=== PATIENT | female | born 1985 | race Caucasian/White ===

== ENCOUNTER 2020-06-26 20:25 | Outpatient (CLI) | payer OTHER, SELFPAY ==
[2020-06-26 21:15] VITALS: BP 106/66; PULSE 75
[2020-06-26 21:30] VITALS: BP 110/69; PULSE 69
== END 2020-06-26 21:50 | disposition home or self-care (01) ==
LOC: ANHOBOP 21:12 → ANHLDR 21:13
PROVIDERS: Visit Provider Obstetrics & Gynecology
DX: O42.90 Premature rupture of membranes, unspecified as to length of time between rupture and onset of labor, unspecified weeks of gestation (principal); Z3A.00 Weeks of gestation of pregnancy not specified
CPT/HCPCS: 59025; 99199

== ENCOUNTER 2020-07-09 11:11 | Inpatient (IN) | payer OTHER, SELFPAY ==
[2020-07-09] VITALS (61 sets, daily range): BP systolic 82–139; BP diastolic 50–108; PULSE 37–138; RESP 18; TEMP 36.3–37.1; O2SAT 94–100; BMI 30.3
[2020-07-09 12:00] LABS: Basophils Percent Auto 0.3 % (0.2-1.2); Eosinophils Percent Auto 0.5 % (0-4.4); Hematocrit 39.3 % (37.0-47.0); Hemoglobin 13.7 g/dL (12.0-15.0); Immature Granulocyte Absolute 0.11 K/mm3 (0.00-0.031); Immature Granulocyte Percent A 1.2 % (0-0.5); Mean Corpuscular HGB Conc 34.9 g/dl (32-36); Mean Corpuscular Hemoglobin 30.3 pg (26-34); Mean Corpuscular Volume 86.9 fl (80-100); Mean Platelet Volume 10.3 fl (7.4-10.4); Monocytes Absolute Auto 0.8 K/mm3 (0.1-0.6); Neutrophils Absolute Auto 6.3 K/mm3 (1.3-6.7); Platelet Count Result 215 k/mm3 (150-375); Red Blood Count 4.52 M/mm3 (4.2-5.4); Red Cell Distribution Width 13.2 % (11.5-14.5); White Blood Count 8.8 K/mm3 (4.5-10.0)
[2020-07-09] MEDS: LACTATED RINGERS 1,000 ML 125 ML IV CONT ×2 (12:05→17:00)
[2020-07-09] MEDS: AMPICILLIN 2 GM/NS 100 ML 2 GM/100 ML BAG IVPB (12:06)
--- NOTE | 2020-07-09 12:10 | LDADM ---
This patient, Rochelle Cristina, was admitted to Labor/Delivery/Recovery 104 on 07/09/20 at 11:11. Plans for labor, pain management and were discussed with patient. Patient/family oriented to hospital policies and general routines including ID bracelet, bed and alarms, visiting hours, pain management, procedures, bathroom and other care routines, personal items, smoking policy, room service/diet and guest tray routines, infant security routines, and visiting hours. Patient/Family are encouraged to report perceived risks to care and to ask questions if they do not understand what they are told or what they should do. See OBIX for further documentation.
--- NOTE | 2020-07-09 12:12 | WPDANESEPP ---
Anes - Eval Pre Procedure Procedure: labor epidural Date/Time: 07/09/20 12:12 Preop Diagnosis: labor pain Pre Op Diagnosis: leaking Patient Data Age: 35 Gender: F Height: Weight: Allergies Allergy/AdvReac Type Severity Reaction Status Date / Time No Known Allergies Allergy Verified 06/07/20 15:04 Home Medications Medication Instructions Recorded Confirmed Type PNV cmb#95-ferrous fumarate-FA 1 tablet PO DAILY 06/07/20 06/07/20 History [] Laboratory Tests 07/09/20 07/09/20 11:53 11:53 WBC 8.8 K/mm3 K/mm3 (4.5-10.0) RBC 4.52 M/mm3 M/mm3 (4.2-5.4) Hgb 13.7 g/dL g/dL (12.0-15.0) Hct 39.3 % % (37.0-47.0) MCV 86.9 fl fl (80-100) MCH 30.3 pg pg (26-34) MCHC 34.9 g/dl g/dl (32-36) RDW 13.2 % % (11.5-14.5) Plt Count 215 k/mm3 k/mm3 (150-375) MPV 10.3 fl fl (7.4-10.4) Immature Gran % (Auto) 1.2 % H % (0-0.5) Neut % (Auto) 72.0 % % (45.5-73.1) Lymph % (Auto) 17.0 % L % (18.3-44.2) [place] % (Auto) 9.0 % H % (2.6-8.5) Eos % (Auto) 0.5 % % (0-4.4) Baso % (Auto) 0.3 % % (0.2-1.2) Lymph # (Auto) 1.50 K/mm3 K/mm3 (0.9-3.2) [place] # (Auto) 0.8 K/mm3 H K/mm3 (0.1-0.6) Eos # (Auto) 0.0 K/mm3 K/mm3 (0-0.3) Baso # (Auto) 0.0 K/mm3 K/mm3 (0.0-0.1) Abs Immat Gran (auto) 0.11 K/mm3 H K/mm3 (0.00-0.031) Absolute Neuts (auto) 6.3 K/mm3 K/mm3 (1.3-6.7) Absolute Nucleated RBC 0.0 K/mm3 K/mm3 (0.0-0.012) Nucleated RBC % 0.0 % % (0.0-0.2) RPR Pending Patient hx anesthesia problems: none Family hx anesthesia problems: none PMF Family History Family History (Updated 06/07/20 @ 15:06 by Olivia Andre RN) Mother Hypertension Diabetes mellitus Breast cancer Lung cancer Father Hepatitis C Social History Social History Smoking status: Never smoker Substance use: never Gender identity (if verbalized by the patient): Female Spiritual care concerns: No Exam Day of Procedure 07/09/20 12:12
--- NOTE | 2020-07-09 12:15 | WPDOBADMIT ---
Obstetrics - Admit Note Admission Note: record reviewed. Additions to the history and/or subsequent changes in the physical findings follow. 35 y/o G1 at 40 2/7 weeks here after a gush of fluid at 1030 today. RomPlus positive. GBS pos. Pregancy otherwise uncomplicated. AVSS NST reactive TOCO: contractions every 2-5 min ABD soft, nontender, gravid, vertex EXT nontender Cervix 4/50/-2. Vertex. A: IUP at term with SROM. P: Anticipate .
[2020-07-09] MEDS: AMPICILLIN 1 GM/NS 50 ML 1 GM/50 ML BAG IVPB (16:01)
--- NOTE | 2020-07-09 17:44 | PM.OBPNLAB ---
Pain Control Date/time seen: 07/09/20 17:44 Comments: Comfortable with epidural. Pelvic Exam Dilation (cm): 9 Effacement (%): 100 station: -1 Contractions Contraction frequency: 2 Contraction pattern: Regular Status status: Category l Assessment and Plan Plan: continuous present management
[2020-07-09] MEDS: OXYTOCIN 30 UNITS/NS 500 ML 30 UNITS/500 ML BAG 6 UNITS IV CONT (18:32)
--- NOTE | 2020-07-09 19:52 | PM.OBPRVD ---
OB - Delivery Note Procedure Delivery date: 07/09/20 Procedure: Induction method: none Delivery monitor: external FHT and external uterine Route of delivery: Laceration description: Perineal - 2nd Degree Delivery repair: vicryl (3-0 Vicryl) Specimen: Yes (cord blood) Estimated blood loss (mL): 120 Anesthesia type: Epidural Disposition: PACU Narrative: 35 y/o G1 at 40 2/7 weeks gestation who presented to the hospital after a gush of clear fluid at home. SROM was confirmed and she was admitted. She received ampicillin for GBS colonization. She received an epidural for pain control. Her labor progressed and her cervix dilated completely. The second stage was augmented with oxytocin intravenously. She pushed with good effort and delivered the infant's head to the perineum, followed by the body. A true knot in the umbilical cord was noted. The nose and mouth were bulb suctioned. After a delay, the cord was clamped and cut. The infant was handed off the field. Cord blood was collected. The placenta delivered spontaneously and was grossly normal in appearance. The usual 3 vessel cord was noted. A second degree midline perineal laceration was sustained. This was reapproximated using 3 0 Vicryl in the usual layered fashion. Excellent hemostasis resulted as did excellent reapproximation of the normal anatomy. Needle and instrument counts were correct. The patient was taken to recovery room in stable condition. The went to the nursery in stable condition. I was present and scrubbed for the entire delivery. [facility] Baby Date of : 07/09/20 Time of : 19:30 Weeks of gestation at delivery: 40 Infant gender: Male Weight (pounds): 7 Weight (ounces): 5 presentation: vertex position: Left Occiput Anterior Placenta delivery description: Spontaneous and Normal Configuration cord vessel description: 3 Vessels and True Knot score one minute: 9 score five minutes: 9
[2020-07-09] MEDS: OXYTOCIN 30 UNITS/NS 500 ML 30 UNITS/500 ML BAG 125 UNITS IV CONT (20:22)
[2020-07-09] MEDS: WITCH HAZEL 40 PADS 1 PAD TOPICAL (22:05)
[2020-07-09] MEDS: BENZOCAINE 20% AER SPR (*SP) 56 GM CAN 1 SPRAY TOPICAL (22:05)
[2020-07-09] MEDS: IBUPROFEN 600 MG TABLET PO (22:56)
--- NOTE | 2020-07-09 23:51 | OBPPTRN ---
Patient transferred to post room # 286 via wheelchair. Support person present. also arrived via crib. Oriented to unit, room, information board, rooming in, admission packet and security measures. Patient verbalizes understanding.
[2020-07-10] MEDS: ACETAMINOPHEN 325 MG TABLET 650 MG PO ×4 (00:50→21:44)
[2020-07-10 05:14] LABS: Hemoglobin 12.1 g/dL (12.0-15.0)
--- NOTE | 2020-07-10 09:00 | PC.NURSE ---
PT introductions made and plan of care discussed per post , pain management, breast feeding, daily care activities. PT verbalized understanding of such care.
[2020-07-10 09:30] VITALS: BP 110/61; PULSE 86; RESP 18; TEMP 36.4
[2020-07-10 09:30] LABS: Rapid Plasma Reagin Non-Reactive (NonReactive)
[2020-07-10] MEDS: IBUPROFEN 600 MG TABLET PO ×3 (09:52→21:44)
[2020-07-10 09:53] VITALS: PULSE 86; RESP 18; O2SAT 100
[2020-07-10] MEDS: DOCUSATE SODIUM 100 MG CAPSULE PO ×2 (09:53→15:17)
[2020-07-10] MEDS: LANOLIN (LANSINOH) 7.5 GM CREAM 1 APPLIC TOPICAL (09:54)
[2020-07-10] MEDS: TETANUS,DIPHTHERIA,AC PERTUSSIS ADULT (0.5 ML) BOOSTRIX IM (09:56)
--- NOTE | 2020-07-10 10:59 | WPDANLDPN2 ---
Anes-Prog Note L&D Date/Time: 07/10/20 10:59 Comfortable throughout: labor and delivery Neuraxial method: epidural Epidural/Spinal procedure site: clean & non-tender Neuro status: Neuro function grossly intact. Cardiovascular status: normal Respiratory status: normal Airway patency: baseline Mental status: baseline Post-Op hydration status: normal Vital Signs: Last Vital Signs Temp 36.4 C L 07/10/20 09:30 Pulse 86 07/10/20 09:53 Resp 18 07/10/20 09:53 BP 110/61 07/10/20 09:30 Pulse Ox 100 07/10/20 09:53 I/O: Intake & Output 07/09/20 07/10/20 07/10/20 23:59 07:59 15:59 Intake Total 2250 Output Total 40 Balance 2210 Post-procedural complaints: none Patient feedback: Patient satisfied with anesthetic care.
--- NOTE | 2020-07-10 12:45 | PC.NURSE ---
Consulted with patient, mother reports infant has had difficulties with latching, she is using the nipple shield each feeding. Mother has initiated pumping and has given a few drops of colostrum each feeding. has not had a successful latch since delivery as reported by mother. Parents are concerned with infant intake and feeding status. Discussed nipple shield precautions and possible complications. Instructions given on application and cleaning of shield. Patient able to return demonstration on proper application of shield. Discussed the need for regular pumping if infant continues to nurse with the shield. Patient verbalizes understanding. Reviewed weaning techniques from shield. Reviewed infant feeding cues, frequencies, duration of feedings, feeding elimination flow sheet, and signs of adequate intake. Demonstrated stimulation techniques to wake for feeding. Assisted with to breast with shield. Mother has flatter nipples. Reviewed positioning/alignment in cross cradle, holding breast in U hold and guided asymmetrical latch on. Discussed rational for each. was able to latch correctly. Infant nursed made little effort to suckle, short chewy bursts with long pausing noted. Discussed the difference of effective vs ineffective feeding. Reviewed signs of a correct latch, effective nursing and suck swallow ratio. was able to maintain latch without discomfort to mother, no suckling noted. Nipple care reviewed. Feeding options discussed. Suggested mother put infant to breast each feeding, then supplement by bottle 15mls EBM/formula, and pump. Reviewed pumping will assist with stimulation of supply and may give any expressed as part of supplement. Parents are very content with feeding plan.
--- NOTE | 2020-07-10 15:17 | PM.OBPNVD ---
OB - PN: Subj Subjective Date/time seen: 07/10/20 15:17 Narrative: Pain OK. Would like circumcision for son. OB - PN: Obj Data Labs CBC & Chem 7: 07/10/20 04:01 Labs: Laboratory Results - last 24 hr 07/09/20 07/10/20 11:53 04:01 Hgb 12.1 Hct 35.0 L RPR Non-reactive OB - PN A/P Plan Comments: A: PPD#1, doing well. P: Routine care. Reviewed circumcision. Exam Psych: Other: AVSS ABD soft, nontender, fundus firm EXT nontender
--- NOTE | 2020-07-10 15:18 | P.DS_ITS ---
DS: Admitting Diagnosis Admitting Diagnosis Admitting Diagnosis: SROM DS: Discharge Diagnosis Discharge Diagnosis (1) (normal spontaneous vaginal delivery): Code(s): O80 - Encounter for full-term uncomplicated delivery Status: Acute DS: Data Data Completed and Pending Labs on day of discharge: Labs from last 24 hours 07/10/20 07/09/20 04:01 11:53 Hgb 12.1 Hct 35.0 L RPR Non-reactive Discharge Plan Discharge Attending physician on discharge: Jhonny Mills Discharging Clinician: Jhonny Mills Patient Disposition: Home, Self-Care Activity: pelvic rest Diet: regular Discharge Instructions: Call or return if temperature above 100.4? F, increased abdominal pain, increased vaginal bleeding or any new problems. Stand Alone Forms: General Discharge Information Follow-up/Referrals: Jhonny Mills MD [Physician] - (6 weeks) Discharge Medications: New ibuprofen 600 mg tablet 600 mg PO Q6H PRN (Reason: cramps) Qty: 30 RF: 0 No Action PNV cmb#95-ferrous fumarate-FA [] 28 mg iron- 800 mcg Tablet 1 tablet PO DAILY RF: 0 Date of admission: 07/09/20 11:11 Primary Care Provider: PHYSICIAN,[employer] SPECIALIST Admitting Provider: Jhonny Mills Attending physician on admission: hJonny Mills
[2020-07-10 20:20] VITALS: BP 107/65; PULSE 89; RESP 18; TEMP 36.5; O2SAT 99
[2020-07-11] MEDS: IBUPROFEN 600 MG TABLET PO ×2 (03:45→10:54)
[2020-07-11] MEDS: ACETAMINOPHEN 325 MG TABLET 650 MG PO ×2 (03:45→10:54)
--- NOTE | 2020-07-11 07:49 | PM.OBPNVD ---
OB - PN: Subj Subjective Date/time seen: 07/11/20 07:49 Narrative: Pain OK. Would like to go home. OB - PN: Obj Data Labs CBC & Chem 7: 07/10/20 04:01 Labs: Laboratory Results - last 24 hr 07/09/20 11:53 RPR Non-reactive OB - PN A/P Plan Comments: A: PPD#2, doing well. P: Home to f/u 6 weeks. Exam Psych: Other: AVSS ABD soft, nontender, fundus firm EXT nontender
[2020-07-11 08:00] VITALS: BP 102/60; PULSE 74; RESP 18; TEMP 36.8; O2SAT 100
--- NOTE | 2020-07-11 10:00 | PC.NURSE ---
Mother verbalizes she is able to independently latch with appropriate positioning/alignment using the nipple shield. She denies any nipple discomfort, is feeding as required and waking infant to feed if needed. Infant continues with sporadic feedings, he has sleepy feeds and will wake and eagerly latch with short bursts of nursing. Infant is currently meeting outcomes for weight, output, jaundice and feeding frequencies. is supplemented after each and mother is pumping. Mother states she feels confident to continue current feeding plan at home. Reviewed transition to breast milk, signs of adequate intake, and engorgement/relief. Instructed to call ICP if intake/output less than required. Discussed signs when infant would require increase in supplementation and signs when infant maybe ready to decrease supplementation. Reviewed regular medications mother is taking. Information provided per Christa. Reviewed community resources on the [employer] website and in the Mom/Baby guide. Information on outpatient services provided. Mother has no further questions at this time.
[2020-07-11] MEDS: DOCUSATE SODIUM 100 MG CAPSULE PO (10:54)
[2020-07-11] MEDS: MULTIVIT/MIN/PREN/FOL AC/IRON TABLET 1 TAB PO (10:55)
--- NOTE | 2020-07-11 14:17 | PC.NURSE ---
0900 Mother states she viewed the discharge DVD.
[2020-07-12 10:56] VITALS: BP 112/73; PULSE 86; RESP 20; TEMP 36.6; O2SAT 100
== END 2020-07-11 12:41 | disposition home or self-care (01) | DRG 807 ==
LOC: ANHLDR 19:56 → ANHOB2 22:26
PROVIDERS: Admitting Provider Obstetrics & Gynecology; Visit Provider Obstetrics & Gynecology
DX: O99.824 Streptococcus B carrier state complicating childbirth (principal); Z37.0 Single live birth; Z3A.40 40 weeks gestation of pregnancy; O36.8330 Maternal care for abnormalities of the fetal heart rate or rhythm, third trimester, not applicable or unspecified; O70.1 Second degree perineal laceration during delivery; O69.2XX0 Labor and delivery complicated by other cord entanglement, with compression, not applicable or unspecified
CPT/HCPCS: 36415; 85014; 85018; 85025; 86592; 86850; 86900; 86901; 90715; A9270; J0290; J2590; J2795; J7120

== ENCOUNTER 2022-01-07 08:30 | Outpatient (CLI) | payer OTHER, SELFPAY ==
--- NOTE | ~2022-01-07 | MM_ITS ---
EXAMINATION: MM scrn calli implant BI w jayne HISTORY: Screening mammogram TECHNIQUE: Craniocaudal and mediolateral oblique 3-D tomosynthesis images with implant displacement a nd synthetic 2-D images were generated. Craniocaudal and mediolateral oblique views of the breasts wi thout implant displacement were obtained using full field digital mammography. CAD analysis was submi tted and interpreted. COMPARISON: No prior mammogram is available for comparison at this institution. BREAST PARENCHYMAL COMPOSITION: The breasts are extremely dense, which lowers the sensitivity of mamm ography. FINDINGS: Status post bilateral augmentation mammoplasty. There is no evidence of suspicious mass, ca lcification, or architectural distortion to suggest malignancy in either breast. There has been no marcus spicious interval change. IMPRESSION: 1. No mammographic evidence of malignancy. 2. Recommend routine screening mammography in one year. BI-RADS Category 1: Negative Reviewed, dictated and finalized at location A. [employer]
== END 2022-01-07 08:31 | disposition home or self-care (01) ==
LOC: ANHIMG 08:32
PROVIDERS: Visit Provider Obstetrics & Gynecology
DX: Z12.31 Encounter for screening mammogram for malignant neoplasm of breast (principal)
CPT/HCPCS: 77063; 77067

== ENCOUNTER 2023-10-05 11:40 | Outpatient (CLI) | payer OTHER, SELFPAY ==
--- NOTE | 2023-10-05 | ECG_ITS ---
Measurements Intervals [place] Rate: 84 P: 33 VA: 106 QRS: 62 QRSD: 82 T: 41 QT: 345 QTc: 409 Interpretive Statements SINUS RHYTHM WITH SHORT VA INTERVAL BASELINE WANDER- V2, V4-V5 BORDERLINE ECG NO PREVIOUS ECG AVAILABLE FOR COMPARISON Electronically Signed On 10-05-2023 13:49:55 VETERINARY MICROBIOLOGIST by Cristofer Zhu D.O.
== END 2023-10-05 11:41 | disposition home or self-care (01) ==
LOC: ANHCARD 11:42
PROVIDERS: Visit Provider Obstetrics & Gynecology
DX: R55 Syncope and collapse (principal); R94.31 Abnormal electrocardiogram [ECG] [EKG]
CPT/HCPCS: 93005

== ENCOUNTER 2023-10-18 15:22 | Observation (INO) | payer OTHER, SELFPAY ==
[2023-10-18] VITALS (13 sets, daily range): BP systolic 104–109; BP diastolic 61–72; PULSE 73–90; O2SAT 99–100; BMI 28.3
--- NOTE | 2023-10-18 16:13 | PC.NURSE ---
Dr Mills notified of adm c/o of dizziness and noted arrhythmia. Orders for labs obtained
[2023-10-18 16:45] LABS: Basophils Percent Auto 0.3 % (0.2-1.2); Eosinophils Absolute Auto 0.1 K/mm3 (0-0.3); Eosinophils Percent Auto 0.5 % (0-4.4); Hematocrit 35.9 % (37.0-47.0); Hemoglobin 12.4 g/dL (12.0-15.0); Immature Granulocyte Absolute 0.09 K/mm3 (0.00-0.031); Immature Granulocyte Percent A 0.9 % (0-0.5); Lymphocytes Percent Auto 17.9 % (18.3-44.2); Mean Corpuscular HGB Conc 34.5 g/dl (32-36); Mean Corpuscular Hemoglobin 29.9 pg (26-34); Mean Corpuscular Volume 86.5 fl (80-100); Mean Platelet Volume 9.5 fl (7.4-10.4); Monocytes Absolute Auto 0.9 K/mm3 (0.1-0.6); Monocytes Percent Auto 9.3 % (2.6-8.5); Neutrophils Absolute Auto 7.2 K/mm3 (1.3-6.7); Neutrophils Percent Auto 71.1 % (45.5-73.1); Platelet Count Result 229 k/mm3 (150-375); Red Blood Count 4.15 M/mm3 (4.2-5.4); Red Cell Distribution Width 12.4 % (11.5-14.5); White Blood Count 10.1 K/mm3 (4.5-10.0)
[2023-10-18 16:57] LABS: Alanine Aminotransferase 18 U/L (6-35); Albumin Level 3.9 g/dL (3.5-5.1); Alkaline Phosphatase 114 U/L (38-126); Anion Gap 8 mmol/L (8-16); Aspartate Amino Transferase 25 U/L (14-36); Bilirubin,Total 0.4 mg/dL (0.2-1.3); Blood Urea Nitrogen 12 mg/dL (7-17); Calcium 9.3 mg/dL (8.4-10.2); Carbon Dioxide 20 mmol/L (22-30); Chloride 106 mmol/L (98-107); Estimated Glomerular Filt Rate > 60; Glucose 69 mg/dL (65-110); Potassium 4.2 mmol/L (3.4-5.0); Sodium 134 mmol/L (137-145)
--- NOTE | 2023-10-18 17:04 | OBADM ---
This patient, Rochelle Cristina, admitted to the OB room OB Post 116 for observation. Patient/family oriented to hospital policies and general routines including ID bracelet, bed and alarms, visiting hours, pain management, procedures, bathroom and other care routines, personal items, smoking policy, room service/diet, and visiting hours. Patient/Family are encouraged to report perceived risks to care and to ask questions if they do not understand what they are told or what they should do.
--- NOTE | 2023-10-18 17:31 | PC.NURSE ---
Dr Mills notified of lab results and BP's. ok to [facility].
[2023-10-18 22:43] LABS: Appearance Urine Clear (Clear); Bacteria Urine Rare /hpf; Bilirubin Urine Negative (Negative); Blood Urine Negative (Negative); Color Urine Yellow (Yellow); Glucose Urine UA Negative (Negative); Ketones Urine Negative (Negative); Leukocyte Esterase Ur 2+ LEU/UL (NEGATIVE); Need Manual Microscopic Reviewed; Nitrate Urine Negative (Negative); Non Pathogenic Casts 0-2; Protein Urine Negative (Negative); RBC Urine 0-2 /hpf (0-2); Specific Grav Ur 1.002 (1.001-1.035); Squamous Epithelial Cell Urine Occasional /hpf (Few); Urobilinogen Urine 0.2 mg/dL (<2.0); pH Urine 6.5 (5.0-9.0)
[2023-10-18 22:44] LABS: Add Urine Microscopic? YES
--- NOTE | 2023-11-02 08:12 | PM.OBTRLD ---
OB - Triage/Final Diagnosis Visit Information Comments/Additional reasons for admission: I have assessed the risk for this patient, Rochelle Cristina, and determined that she would benefit from observation care. Evaluation Laboratory results: Laboratory Tests 10/18/23 16:28 WBC 10.1 H RBC 4.15 L Hgb 12.4 Hct 35.9 L MCV 86.5 MCH 29.9 MCHC 34.5 RDW 12.4 Plt Count 229 MPV 9.5 Immature Gran % (Auto) 0.9 H Neut % (Auto) 71.1 Lymph % (Auto) 17.9 L [place] % (Auto) 9.3 H Eos % (Auto) 0.5 Baso % (Auto) 0.3 Lymph # (Auto) 1.80 [place] # (Auto) 0.9 H Eos # (Auto) 0.1 Baso # (Auto) 0.0 Abs Immat Gran (auto) 0.09 H Absolute Neuts (auto) 7.2 H Absolute Nucleated RBC 0.0 Nucleated RBC % 0.0 Sodium 134 L Potassium 4.2 Chloride 106 Carbon Dioxide 20 L Anion Gap 8 BUN 12 Creatinine 0.60 L Estim Creat Clear Calc Not Reportable Estimated GFR > 60 Glucose 69 Calcium 9.3 Total Bilirubin 0.4 AST 25 ALT 18 Alkaline Phosphatase 114 Total Protein 7.0 Albumin 3.9 Urine Color Yellow Urine Appearance Clear Urine pH 6.5 Ur Specific [place] 1.002 Urine Protein Negative Urine Glucose (UA) Negative Urine Ketones Negative Ur Blood (Man) Negative Urine Nitrate Negative Urine Bilirubin Negative Urine Urobilinogen 0.2 Ur Leukocyte Esterase 2+ H Add Ur Microanalysis Reviewed Urine RBC 0-2 Urine WBC 6-10 Ur Squamous Epith Cells Occasional Urine Bacteria Rare Urine Casts 0-2 Final Diagnosis (1) Dizziness: Code(s): R42 - Dizziness and giddiness Status: Acute
== END 2023-10-18 17:40 | disposition home or self-care (01) ==
PROVIDERS: Admitting Provider Obstetrics & Gynecology; Visit Provider Obstetrics & Gynecology
DX: R42 Dizziness and giddiness (principal); O26.899 Other specified pregnancy related conditions, unspecified trimester; Z3A.00 Weeks of gestation of pregnancy not specified
CPT/HCPCS: 36415; 80053; 81001; 85025; 87086; G0378; G0379

== ENCOUNTER 2023-12-17 03:54 | Inpatient (IN) | payer OTHER, SELFPAY ==
[2023-12-17] VITALS (96 sets, daily range): BP systolic 62–218; BP diastolic 44–193; PULSE 27–244; RESP 18–22; TEMP 36.6–37.1; O2SAT 85–100; BMI 30.2
[2023-12-17] MEDS: AMPICILLIN 2 GM/NS 100 ML 2 GM/100 ML BAG IVPB (04:20)
[2023-12-17] MEDS: LACTATED RINGERS 1,000 ML 125 ML IV CONT ×3 (04:20→06:13)
[2023-12-17 04:22] LABS: Basophils Percent Auto 0.4 % (0.2-1.2); Eosinophils Absolute Auto 0.1 K/mm3 (0-0.3); Eosinophils Percent Auto 0.9 % (0-4.4); Hematocrit 38.4 % (37.0-47.0); Hemoglobin 12.6 g/dL (12.0-15.0); Immature Granulocyte Absolute 0.06 K/mm3 (0.00-0.031); Immature Granulocyte Percent A 0.8 % (0-0.5); Lymphocytes Absolute Auto 2.36 K/mm3 (0.9-3.2); Lymphocytes Percent Auto 29.5 % (18.3-44.2); Mean Corpuscular HGB Conc 32.8 g/dl (32-36); Mean Corpuscular Hemoglobin 27.6 pg (26-34); Mean Corpuscular Volume 84.2 fl (80-100); Mean Platelet Volume 9.7 fl (7.4-10.4); Monocytes Absolute Auto 0.8 K/mm3 (0.1-0.6); Monocytes Percent Auto 10.1 % (2.6-8.5); Neutrophils Absolute Auto 4.7 K/mm3 (1.3-6.7); Neutrophils Percent Auto 58.3 % (45.5-73.1); Platelet Count Result 254 k/mm3 (150-375); Red Blood Count 4.56 M/mm3 (4.2-5.4); Red Cell Distribution Width 12.6 % (11.5-14.5)
--- NOTE | 2023-12-17 04:52 | WPDANESEPPF ---
Anes - Initial Pre Proc Eval Procedure: Labor epidural Date/Time: 12/17/23 04:52 Surgeon: Jhonny Mills MD Pre Op Diagnosis: Labor pain Pre Op Diagnosis: Leaking Fluid,Contractions Patient Data Age: 38 Gender: F Height: Weight: Last Vital Signs Pulse 83 12/17/23 04:50 BP 134/88 12/17/23 04:50 Pulse Ox 100 12/17/23 04:47 Allergies Allergy/AdvReac Type Severity Reaction Status Date / Time No Known Allergies Allergy Verified 06/07/20 15:04 Home Medications Medication Instructions Recorded Confirmed Type vit no.95-ferrous 1 tablet PO DAILY 06/07/20 06/07/20 History fumarate 28 mg-folic acid 800 mcg tablet () Laboratory Tests 12/17/23 04:08 WBC 8.0 K/mm3 (4.5-10.0) RBC 4.56 M/mm3 (4.2-5.4) Hgb 12.6 g/dL (12.0-15.0) Hct 38.4 % (37.0-47.0) MCV 84.2 fl (80-100) MCH 27.6 pg (26-34) MCHC 32.8 g/dl (32-36) RDW 12.6 % (11.5-14.5) Plt Count 254 k/mm3 (150-375) MPV 9.7 fl (7.4-10.4) Immature Gran % (Auto) 0.8 H % (0-0.5) Neut % (Auto) 58.3 % (45.5-73.1) Lymph % (Auto) 29.5 % (18.3-44.2) [place] % (Auto) 10.1 H % (2.6-8.5) Eos % (Auto) 0.9 % (0-4.4) Baso % (Auto) 0.4 % (0.2-1.2) Lymph # (Auto) 2.36 K/mm3 (0.9-3.2) [place] # (Auto) 0.8 H K/mm3 (0.1-0.6) Eos # (Auto) 0.1 K/mm3 (0-0.3) Baso # (Auto) 0.0 K/mm3 (0.0-0.1) Abs Immat Gran (auto) 0.06 H K/mm3 (0.00-0.031) Absolute Neuts (auto) 4.7 K/mm3 (1.3-6.7) Absolute Nucleated RBC 0.0 K/mm3 (0.0-0.012) Nucleated RBC % 0.0 % (0.0-0.2) RPR Pending Patient hx anesthesia problems: none Family hx anesthesia problems: none Results Review: All pre-operative results and documents have been reviewed as part of the pre-operative evaluation. [facility] Family History Family History Mother Hypertension Diabetes mellitus Breast cancer Lung cancer Father Hepatitis C Social History Social History Smoking status: Never smoker Substance use: never Gender identity (if verbalized by the patient): Female Spiritual care concerns: No Anes - Eval Final PreProcedure Day of Procedure 12/17/23 04:52 Patient weight: normal Heart: regular rate and rhythm Lungs: clear to auscultation Airway: Mallampati scale class II Neurological: alert and oriented ASA classification: II Anesthesia type and monitoring: regional epidural and standard monitoring Results Review: All pre-operative results and documents have been reviewed as part of the pre-operative evaluation. Informed Consent: The patient's anesthetic plan and its attendant risks and benefits were discussed with the patient/family/POA. Questions were solicited and answers provided to the satisfaction of the patient/family/POA.
--- NOTE | 2023-12-17 04:54 | WPDANESEPN ---
Anes - Epidural Procedure Note Date/Time: 12/17/23 04:54 Consent: I have discussed with the patient/family/POA, the placement of an epidural catheter and the use of epidural narcotic/local anesthetic for labor analgesia and/or postoperative pain management, including associated potential risks, benefits, complications and side effects. I have discussed alternative methods of labor analgesia and/or postoperative pain management. The patient/family/POA, understand(s) and wish(es) to proceed with epidural narcotic/local anesthetic for labor analgesia and/or postoperative pain management. Time-Out: A pre-procedural Time-Out was completed immediately before starting the procedure and confirmed: Patient Identification, Site, Procedure, Patient Position and the Availability of Requisite Equipment. Clinical Indications: Labor pain Epidural Insertion Note Patient position: sitting Skin prep: chlorhexidine and sterile drape Needle: 18g Tuohy-Schliff Catheter: 20g Unstyleted Technique: Loss of resistance. Level of insertion: L4/5 Catheter skin shiv (cm): 10 Length in epidural space (cm): 5 Skin anesthesia: lidocaine 1% Test dose: 1.5% Lidocaine with 1:[id number] Epi, negative for subarachnoid Inj and negative for intravascular Inj Time of test dose: 04:42 Observations: tolerated well Complications: none
[2023-12-17] MEDS: FAMOTIDINE 20 MG/2 ML VIAL IV PUSH (04:57)
--- NOTE | 2023-12-17 04:58 | ADMGEN ---
This patient, Rochelle Cristina, was admitted to Labor/Delivery/Recovery 105-00. Patient/family oriented to hospital policies and general routines including ID bracelet, bed and alarms, visiting hours, pain management, procedures, bathroom and other care routines, personal items, smoking policy, room service/diet, and visiting hours. Information on how to activate the Rapid Response Team has been discussed. Patient/Family are encouraged to report perceived risks to care and to ask questions if they do not understand what they are told or what they should do.
[2023-12-17] MEDS: ONDANSETRON INJ 4 MG/2 ML VIAL IV PUSH (05:19)
--- NOTE | 2023-12-17 05:26 | WPDOBADMIT ---
Obstetrics - Admit Note Admission Note: record reviewed. Additions to the history and/or subsequent changes in the physical findings follow. 38 y/o at 39 3/7 weeks here after a gush of fluid at 0315. Contractions have worsened since then. GBS pos. SROM confirmed on L&D. Meconium-stained fluid noted. Epidural has been placed and she is a little more comfortable, but still having painful contractions. AVSS NST reactive TOCO: contractions every 2-3 min ABD soft, nontender, gravid, vertex EXT nontender Cervix 8/100/0 A: IUP at term with SROM, GBS pos, meconium. P: Ampicillin. Peds aware. Anticipate .
--- NOTE | 2023-12-17 07:51 | PM.OBPRVD ---
OB - Vaginal Delivery Note Procedure Delivery date: 12/17/23 Events: Positive Group B Strep (GBS) Induction method: None Delivery monitor: External FHT and External Uterine Route of delivery: Episiotomy description: None Laceration Description: Perineal - 2nd Degree Delivery repair: vicryl (3-0) Specimen: Yes (cord blood, placenta) Quantitative Blood Loss (ml): 320 Anesthesia type: Epidural Disposition: PACU Complications: Other complications (Shoulder dystocia) Narrative: 38 y/o at 39 3/7 weeks gestation who presented to the hospital after a gush of fluid and onset of contractions. SROM was diagnosed, with meconium-stained fluid. She received an epidural for pain control. She was given ampicillin for GBS colonization. Her labor progressed and her cervix dilated completely. She pushed with good effort and delivered the infant's head to the perineum. A loose nuchal cord was noted. A shoulder dystocia was encountered. McRobert's maneuver was employed. Fundal pressure and traction on head were strictly avoided. The posterior (left) shoulder was grasped, and a counterclockwise corkscrew maneuver easily reduced the anterior shoulder. Delivery of the body was then quickly and easily effected. The nuchal cord was reduced. The nose and mouth were bulb suctioned. After a delay, the cord was clamped and cut. The infant was handed off the field. Cord blood was collected. The placenta delivered spontaneously and was grossly normal in appearance. The usual 3 vessel cord was noted. A second degree midline perineal laceration was sustained. This was reapproximated using 3 0 Vicryl in the usual layered fashion. Excellent hemostasis resulted as did excellent reapproximation of the normal anatomy. Needle and instrument counts were correct. The patient was taken to recovery room in stable condition. The infant went to the nursery in stable condition. I was present and scrubbed for the entire delivery. Pediatrics was in attendance as well. [place] [facility] Date of : 12/17/23 Time of : 07:33 Weeks of gestation at delivery: 39 Infant gender: Male presentation: vertex position: Left Occiput Anterior Placenta delivery description: Spontaneous Cord Vessel Description: 3 Vessels and Nuchal Cord score one minute: 4 score five minutes: 9
--- NOTE | 2023-12-17 07:57 | PM.OBDSVD ---
DS: Admitting Diagnosis Discharge Date 12/19/23 Admitting Diagnosis IUP at 39 3/7 weeks SROM Meconium-stained fluid GBS colonization DS: Discharge Diagnosis Discharge Diagnosis (1) GBS (group B Streptococcus carrier), +RV culture, currently : Code(s): O99.820 - Streptococcus B carrier state complicating Status: Acute (2) (normal spontaneous vaginal delivery): Code(s): O80 - Encounter for full-term uncomplicated delivery Status: Acute OB - DS: Summary OB Procedures : None OB Procedures Intrapartum: Spontaneous Vag Delivery and GBS prophylaxis OB Procedures: : None Peripartum Data Laceration Description: Perineal - 2nd Degree Episiotomy description: None Time Spent with Patient Time attestation: Total time spent providing and/or coordinating discharge services: DS: Data Data Completed and Pending Labs on day of discharge: Labs from last 24 hours 12/17/23 04:08 WBC 8.0 RBC 4.56 Hgb 12.6 Hct 38.4 MCV 84.2 MCH 27.6 MCHC 32.8 RDW 12.6 Plt Count 254 MPV 9.7 Immature Gran % (Auto) 0.8 H Neut % (Auto) 58.3 Lymph % (Auto) 29.5 Swift % (Auto) 10.1 H Eos % (Auto) 0.9 Baso % (Auto) 0.4 Lymph # (Auto) 2.36 Swift # (Auto) 0.8 H Eos # (Auto) 0.1 Baso # (Auto) 0.0 Abs Immat Gran (auto) 0.06 H Absolute Neuts (auto) 4.7 Absolute Nucleated RBC 0.0 Nucleated RBC % 0.0 RPR Pending Blood Type A Positive Antibody Screen Negative Discharge Plan Discharge Attending physician on discharge: Jhonny Mills Discharging Clinician: Jhonny Mills Patient Disposition: Home, Self-Care Activity: pelvic rest Diet: regular Discharge Instructions: Call or return if temperature above 100.4? F, increased abdominal pain, increased vaginal bleeding or any new problems. Stand Alone Forms: General Discharge Information Follow-up/Referrals: Jhonny Mills MD [Physician] - 6 Weeks Discharge Medications: New ibuprofen 600 mg tablet 600 mg PO Q6H PRN (Reason: cramps) Qty: 30 0RF Continued PNV cmb#95-ferrous fumarate-FA [] 28 mg iron- 800 mcg Tablet 1 tablet PO DAILY Date of admission: 12/17/23 03:54 Primary Care Provider: PHYSICIAN,PIPE FINISHING SUPERVISOR Admitting Provider: Jhonny Mills Attending physician on admission: Jhonny Mills Condition: Stable
[2023-12-17] MEDS: OXYTOCIN 30 UNITS/NS 500 ML 30 UNITS/500 ML BAG 125 UNITS IV CONT (07:58)
[2023-12-17] MEDS: BENZOCAINE 20% AER SPR (*SP) 56 GM CAN 1 SPRAY TOPICAL (09:45)
[2023-12-17] MEDS: WITCH HAZEL 40 PADS 1 PAD TOPICAL (09:45)
[2023-12-17] MEDS: IBUPROFEN 600 MG TABLET PO ×3 (10:48→23:07)
[2023-12-17 14:01] LABS: Rapid Plasma Reagin Non-Reactive (NonReactive)
[2023-12-17] MEDS: ACETAMINOPHEN 325 MG TABLET 650 MG PO ×2 (14:21→20:30)
--- NOTE | 2023-12-17 15:55 | PC.NURSE ---
[id number] Introductions were made, then consulted with patient to assess needs related to . Mother led the conversation with her?plans to feed?her infant, the?experience so far, and she has hand expressed her milk and finger feeding it to her infant that is sleepy and reluctant to breastfeed 6 hours after . Encouraged understanding of the benefits of skin to skin (demonstrating unwrapping infant and placing upright on her chest), stimulating with massage touch, changing positions to encourage wakefulness, how to watch for early feeding cues, responsive feeding, feeding on demand (aiming for 8-12 times in 24 hours, about every 2-3 hours), milk production, building/maintaining a milk supply, duration of feeding, signs of adequate intake/output and how to record on the feeding sheet. Reviewed positioning and ear, shoulder, hip alignment, supporting the breast to facilitate a deep latch, asymmetrical latch (off-center), leading with the chin with a big, open, wide gape and body close to mother. We worked with in the laid-back and the cross cradle position. Reviewed comfort measures of healing with a warm, wet washcloth to rinse breast, then leave open to air-dry, good handwashing when or touching the breast/nipples to prevent infection. Discussed with mother if infant continues to not latch after 12 hours to consider pumping with an electric pump, however; removing milk with hand expression is adequate for now. We reviewed hand expression technique, milk shake , gentle massage touch, nipple rolling/stretching. After one hour was quiet, alert, and awake demonstrating occasional feeding cues. Mother was encouraged to work with her , remove milk, and we reviewed what to expect the first 24 hours with infant eager the first 1-2 hours, then sleepy. remains [id number] and is working with . Encouraged mother to wait for the big, wide, open mouth and to not push the nipple into the infants mouth when it is not opened wide to prevent misshaping and injury. Mother shared that she used a nipple shield with her first son and does not want to use it again with this child. Mother voiced understanding of skin to skin, stimulating with massage touch, responsive feedings, hand expressed colostrum, talking to infant to encourage if it has been 2 -2.5 hours since the start of the last , to call if does not latch, or if there is discomfort with . Resources used for education were facilitated with the tool, mom and baby guide Inpatient/outpatient resources provided with feeding sheet, name written on the communication board, and the mom/baby guide. Mother has met with Job Peña RN IBCLC prenatally. Mother voiced understanding of information, demonstrated learning and will call if there is a request for assistance. Reported to the Primary RN.
[2023-12-17] MEDS: FAMOTIDINE 10 MG TABLET (20:55)
[2023-12-18] MEDS: ACETAMINOPHEN 325 MG TABLET 650 MG PO ×4 (03:10→20:52)
[2023-12-18 03:20] VITALS: BP 106/65; PULSE 64; RESP 18; TEMP 36.4; O2SAT 98
[2023-12-18 04:46] LABS: Hematocrit 34.7 % (37.0-47.0); Hemoglobin 11.4 g/dL (12.0-15.0)
[2023-12-18] MEDS: IBUPROFEN 600 MG TABLET PO ×4 (05:04→23:41)
[2023-12-18 07:45] VITALS: BP 108/74; PULSE 76; RESP 16; TEMP 37.1; O2SAT 100
[2023-12-18] MEDS: MULTIVIT/MIN/PREN/FOL AC/IRON TABLET 1 TAB PO (09:06)
[2023-12-18] MEDS: DOCUSATE SODIUM 100 MG CAPSULE PO ×2 (09:06→17:33)
--- NOTE | 2023-12-18 09:19 | PM.OBPNVD ---
OB - PN: Subj Subjective Date/time seen: 12/18/23 09:19 Narrative: Pain OK. Would like circumcision for son. OB - PN: Obj Data Labs 12/18/23 03:26 Labs: Laboratory Results - last 24 hr 12/17/23 12/18/23 04:08 03:26 Hgb 11.4 L Hct 34.7 L RPR Non-reactive OB - PN A/P Plan Comments: A: PPD#1, doing well. P: Reviewed circ. Routine care. Plan home tomorrow. Exam Psych: Other: AVSS ABD soft, nontender, fundus firm EXT nontender
--- NOTE | 2023-12-18 09:48 | WPDANLDPN2 ---
Anes-Prog Note L&D Date/Time: 12/18/23 09:48 Comfortable throughout: labor and delivery Neuraxial method: epidural Epidural/Spinal procedure site: clean & non-tender Neuro status: Neuro function grossly intact. patient left ankle and lower calf is numb. She can flex and move foot with ease. she does not feel weakness with it and is able to ambulate. Will continue to monitor. Cardiovascular status: normal Respiratory status: normal Airway patency: baseline Mental status: baseline Post-Op hydration status: normal Vital Signs: Last Vital Signs Temp 36.4 C L 12/18/23 03:20 Pulse 64 12/18/23 03:20 Resp 18 12/18/23 03:20 BP 106/65 12/18/23 03:20 Pulse Ox 98 12/18/23 03:20 O2 Del Method Room Air 12/17/23 05:38 Pain score (VAS): 0 Post-procedural complaints: none Patient feedback: Patient satisfied with anesthetic care.
[2023-12-18 20:00] VITALS: BP 111/68; PULSE 68; RESP 18; TEMP 36.8; O2SAT 100
[2023-12-18] MEDS: FAMOTIDINE 10 MG TABLET PO (22:04)
[2023-12-19] MEDS: ACETAMINOPHEN 325 MG TABLET 650 MG PO ×2 (03:33→09:17)
[2023-12-19] MEDS: IBUPROFEN 600 MG TABLET PO (05:35)
--- NOTE | 2023-12-19 07:43 | PM.OBPNVD ---
OB - PN: Subj Subjective Date/time seen: 12/19/23 07:43 Narrative: Pain OK. Would like to go home. OB - PN: Obj Data Labs 12/18/23 03:26 OB - PN A/P Plan Comments: A: PPD#2, doing well. P: Home to f/u 6 weeks. Exam Psych: Other: AVSS ABD soft, nontender, fundus firm EXT nontender
[2023-12-19 07:55] VITALS: BP 120/78; PULSE 60; RESP 16; TEMP 36.7; O2SAT 100
[2023-12-19] MEDS: MULTIVIT/MIN/PREN/FOL AC/IRON TABLET 1 TAB PO (08:09)
[2023-12-19] MEDS: DOCUSATE SODIUM 100 MG CAPSULE PO (08:09)
[2023-12-20 16:03] VITALS: BP 114/75; PULSE 66; RESP 18; TEMP 37.1; O2SAT 100
== END 2023-12-19 10:15 | disposition home or self-care (01) | DRG 807 ==
LOC: ANHLDR 07:58 → ANHOB2 10:13
PROVIDERS: Admitting Provider Obstetrics & Gynecology; Visit Provider Obstetrics & Gynecology
DX: O99.824 Streptococcus B carrier state complicating childbirth (principal); Z37.0 Single live birth; O77.0 Labor and delivery complicated by meconium in amniotic fluid; O70.1 Second degree perineal laceration during delivery; O66.0 Obstructed labor due to shoulder dystocia; O69.81X0 Labor and delivery complicated by cord around neck, without compression, not applicable or unspecified; Z3A.39 39 weeks gestation of pregnancy
CPT/HCPCS: 36415; 85014; 85018; 85025; 86592; 86850; 86900; 86901; 88307; A9270; J0290; J2405; J2590; J2795; J7120

== ENCOUNTER 2025-04-03 09:28 | Outpatient (CLI) | payer OTHER, SELFPAY ==
--- NOTE | ~2025-04-03 | MM_ITS ---
EXAMINATION: MM scrn calli implant BI w jayne HISTORY: Screening mammogram TECHNIQUE: Craniocaudal and mediolateral oblique 3-D tomosynthesis images with implant displacement a nd synthetic 2-D images were generated. Craniocaudal and mediolateral oblique views of the breasts wi thout implant displacement were obtained using full field digital mammography. CAD analysis was submi tted and interpreted. COMPARISON: 01/07/2022 BREAST PARENCHYMAL COMPOSITION: Dense: The breasts are extremely dense, which lowers the sensitivity of mammography. FINDINGS: There is no evidence of suspicious mass, calcification, or architectural distortion to sugg est malignancy in either breast. There has been no suspicious interval change. IMPRESSION: 1. No mammographic evidence of malignancy. 2. Recommend routine screening mammography in one year. BI-RADS Category 1: Negative Reviewed, dictated and finalized at location B.
--- OUTSIDE RECORDS SUMMARY | 2025-04-03 09:44 | XMS_ITS | Encounter Summary ---
Author Organization [facility] Healthcare Address [address] [place] [id number] Care Team Providers Care Dog Boarder Name Role Phone Lisa Harvey NP Primary Care Provider [phone] Jhonny Mills MD Unavailable [phone] Encounter Details Date Type Department Care Team (Late st Contact Info) Description 02/19/2025 Results Follow-Up [facility] Primary Care at [address] [id number] Lisa Harvey NP [address] [place] [address] [address] [place] [address] Vitamin D 25 hydroxy, Thyroid Function [place], Lipid panel, Additional followed-up results: 6 Social History Tobacco Use Types Packs/Day Years Used Date Smoking Tobacco: Never Passive Smoke Exposure: Past Smokeless Tobacco: Never AUDIT-C Answer Date Recorded Q1: How often do you have a drink containing alcohol? 4 or more times a week 10/19/2023 Q2: How many drinks containi ng alcohol do you have on a typical day when you are drinking? 1 or 2 Q3: How often do you have si x or more drinks on one occasion? Never 10/19/2023 PHQ-2 Answer Date Recorded PHQ-2 Total Score (If total score is 3 or more points, staff should administer the PHQ-9) 0 02/16/2025 Comments No Sex and Gender Information Value Date Recorded Sex Assigned at Not on file Legal Sex Female 9:15 AM CDT Gender Identity Not on file Sexual Orientation Not on file documented as of this encounter Plan of Treatment Not on file documented as of this encounter Visit Diagnoses Not on filedocumented in this encounter Care Teams Dog Boarder Relationship Specialty Start Date End Date Lisa Harvey NP [address] [facility] [address] [place] [address] PCP - General Internal Medicine 02/16/25 Jhonny Mills MD [address] [facility] [address] [place] [address] Referring Physician Obstetrics and Gynecology 02/16/25 documented as of this encounter
--- OUTSIDE RECORDS SUMMARY | 2025-04-03 09:44 | XMS_ITS | Referral Summary ---
Author Organization [facility] Virtual Care Address [address] [place] [phone] Phone Care Team Providers Care Digital Composer Name Role Phone Lisa Harvey NP Primary Care Provider [phone] Jhonny Mills MD Unavailable [phone] Encounters Date Type Department Care Team Description 02/19/2025 Results Follow-Up [facility] Primary Care at [address] [id number] Lisa Harvey NP Vitamin D 25 hydroxy, Thyroid Function [place], Lipid panel, Additional followed-up results: 6 02/16/2025 1:17 PM CDT - 02/16/2025 11:59 PM CDT Hospital Encounter [address] [address] Encounter for vitamin deficiency screening; Wellness examination; Screening for thyroid disorder; Screening, lipid; Encounter for screening examination for impaired glucose regulation and diabetes mellitus; Screening, anemia, deficiency, iron; Need for hepatitis B screening test; Need for hepatitis C screening test Discharge Disposition: Discharge to home or self care 02/16/2025 1:15 PM CDT Lab [facility] at [address] [address] Wellness examination (Primary Dx) 02/16/2025 12:30 PM CDT Office Visit [facility] Primary Care at [address] [address] Lisa Harvey NP Wellness examination (Primary Dx); Screening, lipid; Encounter for vitamin deficiency screening; Need for hepatitis C screening test; Need for hepatitis B screening test; Screening, anemia, deficiency, iron; Encounter for screening examination for impaired glucose regulation and diabetes mellitus; Screening for thyroid disorder from Last 3 Months Allergies No known active allergies Medications multivitamin with minerals tablet Take 1 tablet by mouth daily Active magnesium gluconate 200 mg tabletIndication s:hypomagnesemia 1 tablet (200 mg total) Active Lactobacillus acidophilus (Probiotic) 10 billion cell capsule Take by mouth Active semaglutide (Ozempic) 0.25 mg or 0.5 mg(2 mg/1.5 mL) pen injector injection Inject 0.25 mg under the skin every 7 days Active Active Problems Problem Noted Date Diagnosed Date Wellness examination 02/16/2025 Assessment & Plan (02/16/2025 1:24 PM CDT): Routine health maintenance objectives discussed and orders placed for any outstanding screening studies. Physical exam performed as above. Routine annual labs obtained and will be reviewed with patient when results available. Encouraged regular physical activity--moderate activity for a total of 150 minutes per week over 3-5 days. Encouraged healthy diet with regular fresh fruits and vegetables limited in processed carbohydrates. Orders: CBC with auto differential; Future Comprehensive metabolic panel; Future Lipid panel; Future Thyroid Function [place]; Future Resolved Problems Problem Noted Date Diagnosed Date Resolved Date Dizziness 10/19/2023 02/16/2025 Palpitations 10/19/2023 02/16/2025 Immunizations Immunization Administration Dates Next Due Influenza, Quadrivalent, Yesenia l Culture-based MDCK, Preservative Free, Antibiotic Free, Intramuscular 09/12/2022,12/29/2019 Influenza, Quadrivalent, Spl it, Preservative Free, Intramuscular 10/28/2023,10/03/2020 Influenza, Unspecified 11/15/2023(Deferr ed: Patient Refused),10/28/2023 RSV, Bivalent, Protein Subun it Rsvpref, Diluent (Abrysvo) 11/16/2023 Tdap 10/28/2023,07/10/2020 Social History Tobacco Use Types Packs/Day Years Used Date Smoking Tobacco: Never Passive Smoke Exposure: Past Smokeless Tobacco: Never Tobacco Cessation:Counseling Given: Not Answered AUDIT-C Answer Date Recorded Q1: How often [...] on file Sexual Orientation Not on file Last Filed Vital Signs Vital Sign Reading Time Taken Comments Blood Pressure 108/64 02/16/2025 12:36 PM CDT Pulse 68 02/16/2025 12:36 PM CDT Temperature 36.6 C (97.8 F) 02/16/2025 12:36 PM CDT Respiratory Rate 16 02/16/2025 12:36 PM CDT Oxygen Saturation 98% 02/16/2025 12:36 PM CDT Inhaled Oxygen Concentration - - Weight 52.6 kg (116 lb) 02/16/2025 12:36 PM CDT Height 149.9 cm (4' 11 ) 02/16/2025 12:36 PM CDT Body Mass Index 23.43 02/16/2025 12:36 PM CDT Plan of Treatment Not on file Procedures Procedure Name Priority Date/Time Associated Diagnosis Comments EGFR Routine 02/16/2025 1:17 PM CDT Wellness examination Encounter for screening examination for impaired glucose regulation and diabetes mellitus DIFFERENTIAL AUTO Routine 02/16/2025 1:1 7 PM CDT Wellness examination Screening, anemia, deficiency, iron CBC WITH AUTO DIFFERENTIAL Routine 02/16/2025 1:17 PM CDT Wellness examination Screening, anemia, deficiency, iron COMPREHENSIVE METABOLIC PANEL Routine 02/16/2025 1:17 PM CDT Wellness examination Encounter for screening examination for impaired glucose regulation and diabetes mellitus LIPID PANEL Routine 02/16/2025 1:17 PM CDT Wellness examination Screening, lipid THYROID FUNCTION CASCADE Routine 02/16/2025 1:17 PM CDT Wellness examination Screening for thyroid disorder VITAMIN D 25 HYDROXY Routine 02/16/2025 1:17 PM CDT Encounter for vitamin deficiency screening HEPATITIS C ANTIBODY Routine 02/16/2025 1:17 PM CDT Need for hepatitis C screening test HEPATITIS B SURFACE ANTIBODY (IMMUNE STATUS) Routine 02/16/2025 1:17 PM CDT Need for hepatitis B screening test HM PAP SMEAR WITH HPV Routine 08/01/2024 7:56 AM CDT from Last 3 Months or Most Recently Relevant to Health Maintenance Results * eGFR (02/16/2025 1:17 PM CDT) eGFR 73 >=60 mL/min/1. 73 m2 Comment: Interpretive Data Reference Interval Normal >/= 90 mL/min/1.73m2 Mildly decreased* 60 - 89 mL/min/1.73m2 Mildly to moderately decreased 45 - 59 mL/min/1.73m2 Moderately to severely decreased 30 - 44 mL/min/1.73m2 Severely decreased 15 - 29 mL/min/1.73m2 Kidney Failure < 15 mL/min/1.73m2 *Relative to young adult level Estimated glomerular filtration rate is determined by the 2020 CKD-EPI equation recommended by the National Kidney Foundation (A Unifying Approach to GFR Estimation: Recommendations of the NKF-ASK Task Force on Reassessing the Inclusion of Race in Diagnosing Kidney Disease, JASN 202). The CKD-EPI equation should not be used for patients with unstable renal function and has not been validated in children and those over 70. Current interpretive data was last reviewed 2021. Blood 02/16/2025 1:17 PM CDT 02/16/2025 10:13 PM CDT Lisa Harvey NP LAB BLOOD ORDERABLES Final Re sult [facility] [id number] Department [place] [address] * (ABNORMAL) Differential, auto (02/16/2025 1:17 PM CDT) Neutrophil abs 3.26 1.50 - 6.50 K/cumm Imm gran abs 0.01 0.00 - 0.10 K/cumm [facility] Lymphocyte abs 2.18 0.80 - 3.30 K/cumm [facility] Monocyte abs 0.84(H) 0.20 - 0.80 K/cumm [facility] Eosinophil abs 0.15 0.00 - 0.50 K/cumm [facility] Basophil abs 0.03 0.00 - 0.10 K/cumm [facility] Neutrophil pct 50.3 % [facility] Comment: Interpretive Data Percent cell count reference ranges are not reported, since discordance with absolute values may lead to misinterpretation of CBC data. Current Interpretive Data was last revised on 2018. Imm gran pct 0.2 % [facility] Comment: Interpretive Data Percent cell count reference ranges are not reported, since discordance with absolute values may lead to misinterpretation of CBC data. Current Interpretive Data was last revised on 2018. Lymphocyte pct 33.7 % [facility] Comment: Interpretive Data Percent cell count reference ranges are not reported, since discordance with absolute values may lead to misinterpretation of CBC data. Current Interpretive Data was last revised on 2018. Monocyte pct 13.0 % [facility] Comment: Interpretive Data Percent cell count reference ranges are not reported, since discordance with absolute values may lead to misinterpretation of CBC data. Current Interpretive Data was last revised on 2018. Eosinophil pct 2.3 % [facility] Comment: Interpretive Data Percent cell count reference ranges are not reported, since discordance with absolute values may lead to misinterpretation of CBC data. Current Interpretive Data was last revised on 2018. Basophil pct 0.5 % [facility] Comment: Interpretive Data Percent cell count reference ranges are not reported, since discordance with absolute values may lead to misinterpretation of CBC data. Current Interpretive Data was last revised on 2018. Blood 02/16/2025 1:17 PM CDT 02/16/2025 10:08 PM CDT Lisa Wes MATTRESS STUFFER LAB BLOOD ORDERABLES Final Re sult Performing Organization Address City/[facility]/ZIP Co de Phone Number [facility] [place] [address] [facility] [place] [address] * Thyroid Function [place] (02/16/2025 1:17 PM CDT) Pathologist [facility] TSH 1.55 0.30 - 4.20 mcIUnit/mL Blood 02/16/2025 1:17 PM CDT 02/16/2025 10:08 PM CDT Lisa Wes MATTRESS STUFFER LAB BLOOD ORDERABLES Final Re sult Performing Organization Address [facility] Co de Phone Number [place] [address] [facility] [place] [address] * (ABNORMAL) CBC with auto differential (02/16/2025 1:17 PM CDT) Pathologist [facility] WBC 6.47 3.80 - 9.90 K/cumm Hgb 13.8 11.9 - 15.5 g/dL [facility] Hct 43.3 35.6 - 45.5 % [facility] 318 150 - 400 K/cumm [facility] MPV 9.4 9.1 - 12.3 fL [facility] RBC 4.92 3.90 - 5.20 M/cumm [facility] MCV 88.0 81.3 - 96.4 fL [facility] MCH 28.0 27.1 - 33.3 pg [facility] MCHC 31.9(L) 32.3 - 35.7 g/dL [facility] RDW CV 13.2 11.1 - 14.9 % [facility] RDW SD 42.3 35.7 - 48.1 fL [facility] NRBC abs 0.00 0.00 - 0.01 K/cumm [facility] Blood 02/16/2025 1:17 PM CDT 02/16/2025 10:08 PM CDT Lisawale Harvey MATTRESS STUFFER LAB BLOOD ORDERABLES Final Re sult Performing Organization Address [facility] Co de Phone Number [place] [address] [facility] [place] [address] * Hepatitis C antibody Blood (02/16/2025 1:17 PM CDT) Pathologist [facility] Hep C Ab Nonreactive Nonreactive Comment: Interpretive Data Nonreactive: Antibodies to HCV not detected. Does NOT exclude the possibility of recent exposure to HCV. Equivocal: Equivocal for HCV antibodies. Supplemental molecular testing will be automatically performed to determine infection status in accordance with current CDC screening recommendations. Reactive: Positive for HCV antibodies. This may represent current or past HCV infection. Supplemental molecular testing will be automatically performed to determine current infection status in accordance with current CDC screening recommendations. Interpretive data was last revised on 2020. Blood 02/16/2025 1:17 PM CDT 02/16/2025 10:08 PM CDT Lisa Harvey NP LAB MICROBIOLOGY - GENERAL OR DERABLES Final Result Performing Organization Address [facility] de Phone Number [place] [address] [employer] [place] [address] * Vitamin D 25 hydroxy (02/16/2025 1:17 PM CDT) Pathologist [facility] Vitamin D 25-OH 39 30 - 80 ng/mL Blood 02/16/2025 1:17 PM CDT 02/16/2025 10:08 PM CDT Lisawale Harvey NP LAB BLOOD ORDERABLES Final Re sult Performing Organization Address [facility] Co de Phone Number [place] [address] [facility] [place] [address] * Hepatitis B surface antibody (immune status) Blood (02/16/2025 1:17 PM CDT) Pathologist [facility] HBsAb (immune status) Nonreactive Comment: Interpretive Data Nonreactive: This result is consistent with a lack of immunity to Hepatitis B Virus when used in the setting of routine screening. Equivocal: The immune status of the individual should be further assessed, if appropriate, after consideration of clinical status, risk factors, and additional diagnostic information. Reactive: This result is consistent with immunity to Hepatitis B Virus when used in the setting of routine screening. Current interpretive data was last revised on 20. Blood 02/16/2025 1:17 PM CDT 02/16/2025 10:08 PM CDT us Lisa Harvey NP LAB MICROBIOLOGY - GENERAL OR DERABLES Final Result [place] [address] Department [place] [address] * Lipid panel (02/16/2025 1:17 PM CDT) Cholesterol 196 30 - 199 mg/dL Comment: Interpretive Data Ages < or = 19 years Acceptable: <170 mg/dL Borderline high: 170-199 mg/dL High: >or= 200 mg/dL Ages > or = 20 years Desirable: <200 mg/dL Borderline high: 200-239 mg/dL High: >or= 240 mg/dL Literature References: 1. Expert Panel on Integrated Guidelines for Cardiovascular Health and Risk Reduction in Children and Adolescents. Pediatrics 2011;128:S213 2. NCEP Expert Panel. Circulation 2004;110:227 Current Interpretive Data was last revised on 2018. Triglycerides 64 <=149 mg/dL [facility] Comment: Interpretive Data Ages < or = 9 years Acceptable: <75 mg/dL Borderline high: 75-99 mg/dL High: >or= 100 mg/dL Ages 10 to 20 years Acceptable: <90 mg/dL Borderline high: 90-129 mg/dL High: >or= 130 mg/dL Ages > or = 20 years Desirable: <150 mg/dL Borderline high: 150-199 mg/dL High: 200-499 mg/dL Very high: >or= 499 mg/dL Literature References: 1. Expert Panel on Integrated Guidelines for Cardiovascular Health and Risk Reduction in Children and Adolescents. Pediatrics 2011;128:S213 2. NCEP Expert Panel. Circulation 2004;110:227 Current Interpretive Data was last revised on 2018. HDL 65 >=40 mg/dL [facility] Comment: Interpretive Data Ages < or = 19 years Acceptable: >45 mg/dL Borderline low: 40-45 mg/dL Low: <40 mg/dL Ages > or = 20 years Desirable: >or= 60 mg/dL Low: <40 mg/dL Literature References: 1. Expert Panel on Integrated Guidelines for Cardiovascular Health and Risk Reduction in Children and Adolescents. Pediatrics 2011;128:S213 2. NCEP Expert Panel. Circulation 2004;110:227 Current Interpretive Data was last revised on 2018. LDL, calculated 119 <=129 mg/dL [facility] Comment: Interpretive Data Ages < or = 19 years Acceptable: <110 mg/dL Borderline high: 110-129 mg/dL High: >or= 130 mg/dL Ages > or = 20 years Optimal: <100 mg/dL Near optimal: 100-129 mg/dL Borderline high: 130-159 mg/dL High: >160 mg/dL Calculated using the Ricardo LDL-C estimating equation. This equation was implemented on 2024. Prior to this date LDL-C was estimated using the Friedewald equation. Literature References: 1. Expert Panel on Integrated Guidelines for Cardiovascular Health and Risk Reduction in Children and Adolescents. Pediatrics 2011;128:S213 2. NCEP Expert Panel. Circulation 2004;110:227 3. Ricardo London al. TYLER Cardiol. 2019March 15;5(5):540-548. doi: 10.1001/[email or web address].2020.0013 Current Interpretive Data was last revised on 2024. Non-HDL Cholesterol 131 mg/dL [facility] Comment: Interpretive Data Ages < or = 19 years Acceptable: <120 mg/dL Borderline high: 120-144 mg/dL High: >145 mg/dL Ages > or = 20 years When triglycerides are >200 mg/dL, Non-HDL cholesterol is a secondary target of therapy with treatment goals that are 30 mg/dL greater than the LDL cholesterol target. Literature References: 1. Expert Panel on Integrated Guidelines for Cardiovascular Health and Risk Reduction in Children and Adolescents. Pediatrics 2011;128:S213 2. NCEP Expert Panel. Circulation 2004;110:227 Current Interpretive Data was last revised on 2018. Chol/HDL ratio 3 [facility] Blood 02/16/2025 1:17 PM CDT 02/16/2025 10:08 PM CDT Narrative [facility] - 02/16/2025 10:38 PM CDT Has the patient been fasting for 8 hours or more?->Yes Lisa Harvey MATTRESS STUFFER LAB [place]LO[place] [address] Department [place] [address] * (ABNORMAL) Comprehensive metabolic panel (02/16/2025 1:17 PM CDT) Sodium 137 135 - 145 mmol/L Potassium, pl 4.3 3.3 - 4.9 mmol/L [facility] Chloride 104 97 - 110 mmol/L [facility] CO2 23 22 - 32 mmol/L [facility] Anion gap 10 2 - 15 mmol/L [facility] BUN 20 6 - 25 mg/dL [facility] Creatinine 0.99 0.60 - 1.10 mg/dL [facility] Glucose 82 70 - 199 mg/dL [facility] Comment: Interpretive Data Fasting glucose >/= 126 mg/dl is diagnostic for diabetes. Fasting is defined as no caloric intake for at least 8 hours. Fasting glucose between 100 mg/dl to 125 mg/dl is diagnostic of prediabetes. In a patient with classic symptoms of hyperglycemia or hyperglycemic crisis, a random glucose >/= 200 mg/dl is diagnostic for diabetes. In the absence of unequivocal hyperglycemia, results should be confirmed by repeat testing. The classification and Diagnosis of Diabetes Diabetes Care 202; 46: S19-S40. Current interpretive data was last revised 2022. Calcium 9.4 8.5 - 10.3 mg/dL [facility] Bilirubin, total 0.3 0.1 - 1.2 mg/dL [facility] Protein, pl 7.1 6.5 - 8.5 g/dL [facility] Albumin 4.5 3.5 - 5.0 g/dL [facility] Alk phos 39(L) 40 - 130 Units/L [facility] ALT 21 7 - 45 Units/L [facility] AST 24 10 - 45 Units/L [facility] Blood 02/16/2025 1:17 PM CDT 02/16/2025 10:08 PM CDT us Lisa Harvey NP LAB BLOOD ORDERABLES Final Re sult [place] [address] Department [place] [address] * HM PAP SMEAR WITH HPV (08/01/2024 7:56 AM CDT) Scribed Pap Smear w/HPV Normal us Parminder Delgado MD HEALTH MAINTENANCE Final Result from Last 3 Months or Most Recently Relevant to Health Maintenance Insurance [facility] Care Teams Digital Composer Relationship Specialty Start Date End Date Lisa Harvey NP [address] [facility] [address] [place] [address] PCP - General Internal Medicine 02/16/25 Jhonny Mills MD [address] [facility] [address] [place] [address] Referring Physician Obstetrics and Gynecology 02/16/25
--- OUTSIDE RECORDS SUMMARY | 2025-04-03 09:44 | XMS_ITS | Clinical Summary ---
Author Organization [facility] Virtual Care Address [address] [place] [id number] Phone Care Team Providers Care [employer] Name Role Phone Lisa Harvey NP Primary Care Provider [phone] Jhonny Mills MD Unavailable [phone] Allergies No known active allergies Medications multivitamin [...] panel; Future Lipid panel; Future Thyroid Function [place]; Future Resolved Problems Problem Noted Date Diagnosed Date Resolved Date Dizziness 10/19/2023 02/16/2025 Palpitations 10/19/2023 02/16/2025 Encounters Date Type Department Care Team Description 02/19/2025 Results Follow-Up [facility] Primary Care at [address] [phone] Lisa Harvey NP Vitamin D 25 hydroxy, Thyroid Function [place], Lipid panel, Additional followed-up results: 6 02/16/2025 1:17 PM CDT - 02/16/2025 11:59 PM CDT Hospital Encounter [address] [address] Encounter for vitamin deficiency screening; Wellness examination; Screening for thyroid disorder; Screening, lipid; Encounter for screening examination for impaired glucose regulation and diabetes mellitus; Screening, anemia, deficiency, iron; Need for hepatitis B screening test; Need for hepatitis C screening test Discharge Disposition: Discharge to home or self care 02/16/2025 1:15 PM CDT Lab [facility] Outpatient Lab at [address] [phone] Wellness examination (Primary Dx) 02/16/2025 12:30 PM CDT Office Visit [facility] Primary Care at [address] [phone] Lisa Harvey NP Wellness examination (Primary Dx); Screening, lipid; Encounter for vitamin deficiency screening; Need for hepatitis C screening test; Need for hepatitis B screening test; Screening, anemia, deficiency, iron; Encounter for screening examination for impaired glucose regulation and diabetes mellitus; Screening for thyroid disorder from Last 3 Months Immunizations Immunization Administration Dates Next Due Influenza, Quadrivalent, Yesenia l Culture-based MDCK, Preservative Free, Antibiotic Free, Intramuscular 09/12/2022,12/29/2019 Influenza, Quadrivalent, Spl it, Preservative Free, Intramuscular 10/28/2023,10/03/2020 Influenza, Unspecified 11/15/2023(Deferr ed: Patient Refused),10/28/2023 RSV, Bivalent, Protein Subun it Rsvpref, Diluent (Abrysvo) 11/16/2023 Tdap 10/28/2023,07/10/2020 Surgical History Surgery Date Site/Laterality Comments COMBINED AUGMENTATION MAMMAP LASTY AND ABDOMINOPLASTY 11/15/2003 - 11/14/2004 VAGINAL DELIVERY 11/15/2019 - 11/14/2020 VAGINAL DELIVERY 11/15/2023 - 11/14/2024 Family History Medical History Relation Name Comments Alcohol abuse Brother 1 Liver disease Brother 1 No Known Problems Brother 2 No Known Problems Brother 3 Hepatitis Father Liver disease Father Diabetes Mother Hypertension Mother Lung cancer Mother No Known Problems Sister 1 No Known Problems Sister 2 Relation Name Status Comments Brother 1 Brother 2 Alive Brother 3 Alive Father Mother Sister 1 Alive Sister 2 Alive Social History Tobacco Use Types Packs/Day Years [...] on file Sexual Orientation Not on file Obstetrics History Last Filed Vital Signs Vital Sign Reading [...] 02/16/2025 12:36 PM CDT Plan of Treatment Health Maintenance Due Date Last Done Comments Breast Cancer Screening-Mammogram 1983 Hepatitis B Screening 2001 Influenza Vaccine (Season Ended) 2025 10/28/2023, 10/28/2023, 09/12/2022, Additional history exists Cervical Cancer Screening 08/01/2025 08/01/2024 Covid-19 Vaccine ( season) 2026 09/12/2022, 02/14/2021, 01/24/2021 Postponed from 07/16/2024 (Patient declined, but will receive in the future) Depression Screening 02/16/2026 02/16/2025 Regular Well Visit/Exam 18-64 02/16/2026 02/16/2025 DTaP/Tdap/Td Vaccine (3 - Td or Tdap) 10/28/2033 10/28/2023, 07/10/2020 Hepatitis C Screening Completed 02/16/2025 HPV Vaccines Aged Out No longer eligi ble based on patient's age to complete this topic Pneumococcal vaccine <65 Aged Out No longer eligible based on patient's age to complete this topic Varicella Vaccines Discontinued Procedures Procedure Name Priority Date/Time Associated Diagnosis [...] of Race in Diagnosing Kidney Disease, JASN 2020). The CKD-EPI equation should not be used for patients with unstable renal function and has not been validated in children and those over 70. Current interpretive data was last reviewed 2021. Blood 02/16/2025 1:17 PM CDT 02/16/2025 10:13 PM CDT us Lisa Harvey NP LAB BLOOD ORDERABLES Final Re sult NITO MELO [address] [place] [address] * (ABNORMAL) Differential, auto (02/16/2025 1:17 PM CDT) Neutrophil abs 3.26 1.50 - 6.50 K/cumm Imm gran abs 0.01 0.00 - 0.10 K/cumm NITO MELO Lymphocyte abs 2.18 0.80 - 3.30 K/cumm [facility] Monocyte abs 0.84(H) 0.20 - 0.80 K/cumm [facility] Eosinophil abs 0.15 0.00 - 0.50 K/cumm [facility] Basophil abs 0.03 0.00 - 0.10 K/cumm [facility] Neutrophil pct 50.3 % [facility] Comment: Interpretive Data Percent cell count reference ranges are not reported, since discordance with absolute values may lead to misinterpretation of CBC data. Current Interpretive Data was last revised on 2018. Imm gran pct 0.2 % [facility] Comment: Interpretive Data Percent cell count reference ranges are not reported, since discordance with absolute values may lead to misinterpretation of CBC data. Current Interpretive Data was last revised on 2018. Lymphocyte pct 33.7 % [facility] Comment: Interpretive Data Percent cell count reference ranges are not reported, since discordance with absolute values may lead to misinterpretation of CBC data. Current Interpretive Data was last revised on 2018. Monocyte pct 13.0 % [facility] Comment: Interpretive Data Percent cell count reference ranges are not reported, since discordance with absolute values may lead to misinterpretation of CBC data. Current Interpretive Data was last revised on 2018. Eosinophil pct 2.3 % [facility] Comment: Interpretive Data Percent cell count reference ranges are not reported, since discordance with absolute values may lead to misinterpretation of CBC data. Current Interpretive Data was last revised on 2018. Basophil pct 0.5 % [facility] Comment: Interpretive Data Percent cell count reference ranges are not reported, since discordance with absolute values may lead to misinterpretation of CBC data. Current Interpretive Data was last revised on 2018. Blood 02/16/2025 1:17 PM CDT 02/16/2025 10:08 PM CDT us Lisa Harvey NP LAB BLOOD ORDERABLES Final Re sult NITO [address] [place] [address] * Thyroid Function [place] (02/16/2025 1:17 PM CDT) [facility] TSH 1.55 0.30 - 4.20 mcIUnit/mL Blood 02/16/2025 1:17 PM CDT 02/16/2025 10:08 PM CDT Lisa Harvey CERAMIC ARTIST LAB BLOOD ORDERABLES Final Re sult Performing Organization Address City/[facility]/ZIP Co de Phone Number NITO [address] [place] [address] * (ABNORMAL) CBC with auto differential (02/16/2025 1:17 PM CDT) [facility] WBC 6.47 3.80 - 9.90 K/cumm Hgb 13.8 11.9 - 15.5 g/dL [facility] Hct 43.3 35.6 - 45.5 % [facility] Plt 318 150 - 400 K/cumm [facility] MPV 9.4 9.1 - 12.3 fL [facility] RBC 4.92 3.90 - 5.20 M/cumm [facility] MCV 88.0 81.3 - 96.4 fL [facility] MCH 28.0 27.1 - 33.3 pg [facility] MCHC 31.9(L) 32.3 - 35.7 g/dL [facility] RDW CV 13.2 11.1 - 14.9 % [facility] RDW SD 42.3 35.7 - 48.1 fL [facility] NRBC abs 0.00 0.00 - 0.01 K/cumm [facility] Blood 02/16/2025 1:17 PM CDT 02/16/2025 10:08 PM CDT Lisa Harvey CERAMIC ARTIST LAB BLOOD ORDERABLES Final Re sult Performing Organization Address City/[facility]/ZIP Co de Phone Number NITO MELO [address] [employer] [place] [address] * Hepatitis C antibody Blood (02/16/2025 1:17 PM CDT) Hep C Ab Nonreactive Nonreactive Comment: Interpretive [...] OR DERABLES Final Result Performing Organization Address [facility]/ZIP Co de Phone Number NITO [address] [facility] [place] [address] * Vitamin D 25 hydroxy (02/16/2025 1:17 PM CDT) Pathologist [facility] Vitamin D 25-OH 39 30 - 80 ng/mL Blood 02/16/2025 1:17 PM CDT 02/16/2025 10:08 PM CDT Lisa Harvey NP LAB BLOOD ORDERABLES Final Re sult Performing Organization Address [facility] Co de Phone Number CRISTIANEMIGUE [address] [facility] [place] [address] * Hepatitis B surface antibody (immune status) Blood (02/16/2025 1:17 PM CDT) [facility] HBsAb (immune status) Nonreactive Comment: Interpretive Data [...] GENERAL OR DERABLES Final Result NITO MEL[facility] [address] [place] [address] * Lipid panel (02/16/2025 1:17 PM CDT) [...] NCEP Expert Panel. Circulation 2004;110:227 3. Ricardo Howell et al. TYLER Cardiol. 2019March 15;5(5):540-548. doi: 10.1001/[email or web address].2020.0013 [...] last revised on 2018. Chol/HDL ratio 3 NITO MELO Blood 02/16/2025 1:17 PM CDT 02/16/2025 10:08 PM CDT Narrative NITO - 02/16/2025 10:38 PM CDT Has the patient been fasting for 8 hours or more?->Yes Lisa Therien CERAMIC ARTIST LAB BLOOD ORDERABLES Final Re sult Performing Organization Address City/[facility]/ZIP Co de Phone Number NITO MELO [address] [place] [address] * (ABNORMAL) Comprehensive metabolic panel (02/16/2025 1:17 [...] CDT 02/16/2025 10:08 PM CDT Lisa Harvey CERAMIC ARTIST LAB BLOOD ORDERABLES Final Re sult Performing Organization Address City/[facility]/ZIP Co de Phone Number NITO MELO [address] Department of Laboratories [place] [phone] * HM PAP SMEAR WITH HPV (08/01/2024 7:56 AM CDT) Scribed Pap Smear w/HPV Normal Parmidner Delgado MD HEALTH MAINTENANCE Final Result from Last 3 Months or Most Recently Relevant to Health Maintenance Insurance [facility] CMR Care Teams [employer]inator [employer] Relationship Specialty Start Date End Date Lisa Harvey NP [address] [place], [place] [id number] PCP - General Internal Medicine 02/16/25 Jhonny Mills MD [address] [place] [address] Referring Physician Obstetrics and Gynecology 02/16/25
== END 2025-04-03 09:29 | disposition home or self-care (01) ==
LOC: ANHIMG 09:31
PROVIDERS: PCP Nurse Practitioner; Visit Provider Obstetrics & Gynecology
DX: Z12.31 Encounter for screening mammogram for malignant neoplasm of breast (principal)
CPT/HCPCS: 77063; 77067